=== PATIENT | male | born 1975 | race Caucasian/White ===

== ENCOUNTER 2017-06-14 15:55 | Emergency (ER) | payer OTHER ==
[~2017-06-14] VITALS: Ht 182.9 cm; Wt 111.4 kg
[2017-06-14 16:00] VITALS: TEMP 98
[2017-06-14 16:41] LABS: BASO # 0.1 (0.0-0.2); BASO % 0.5 % (0.0-2.0); EOS # 0.7 (0.0-0.7); EOS % 6.8 % (0-4.0); GRAN # 5.8 (1.4-6.5); GRAN % 58.2 % (42.2-75.2); HEMATOCRIT 44.7 % (42.0-52.0); HEMOGLOBIN 15.5 g/dl (13.5-18.0); LYMPH # 2.6 (1.2-3.4); MEAN CELL VOLUME 87 fl (80.0-100.0); MEAN CORPUSCULAR HEMOGLOBIN 30 pg (27.0-31.0); MEAN CORPUSCULAR HGB CONC 35 g/dl (33.0-37.0); MEAN PLATELET VOLUME 10.9 fl (7.4-10.4); MONO # 0.8 (0.1-0.6); MONO % 8.2 % (1.7-9.3); PLATELET COUNT 212 K/mm3 (130-400); RED BLOOD COUNT 5.13 M/mm3 (4.20-5.60); REDCELL DISTRIBUTION WIDTH-CV 12.6 % (11.5-14.5)
[2017-06-14 16:52] LABS: ADJUSTED CALCIUM 8.9 mg/dL (8.4-10.2); ALBUMIN 4.7 gm/dL (3.5-5.0); BILIRUBIN,TOTAL 0.6 mg/dL (0.0-1.0); CALCIUM 9.5 mg/dL (8.4-10.2); TOTAL PROTEIN 7.9 gm/dL (6.4-8.2)
[2017-06-14] MEDS ORDERED: ZOFRAN ODT4 MG PO (17:37)
[2017-06-14] MEDS ORDERED: NORCO 325 MG-51 TAB PO (17:37)
[2017-06-14] MEDS ORDERED: PROTONIX20 MG PO (17:37)
[2017-06-14 17:56] VITALS: BP 145/79; PULSE 60
== END 2017-06-14 17:57 | disposition home or self-care (01) ==
LOC: COL.ER 15:55
PROVIDERS: Emergency Medicine
DX: R10.13 Epigastric pain (principal); Z90.89 Acquired absence of other organs
CPT/HCPCS: J2270; J2405; J7030